=== PATIENT | male | born 1985 | race Caucasian/White ===

== ENCOUNTER 2017-02-24 19:06 | Emergency (ER) | payer MEDICAID ==
[2017-02-24] MEDS ORDERED: 0.9 % SODIUM CHLORIDE 1,000 ML BAG IV ONE ×2 (19:37→20:27)
--- NOTE | 2017-02-24 19:37 | Emergency Department Record ---
History of Present Illness - General Chief Complaint: General Stated Complaint: POSSIBLE OD Time Seen by Provider: 02/24/17 19:19 Source: Patient Mode of Arrival: EMS Limitations: No limitations - History of Present Illness Initial comments: The patient is here due to being found in bed by his mother not responding correctly and possibly having trouble breathing. The patient states he was lying in bed and had what he describes as an "episode" where he gets lightheaded and possibly passes out. He has had many attacks over the last 2 years but has not had it evaluated. He denied any CP, SOB, or MARISCAL prior to the attacks and also denies any drug use. The patient does have a hx of opiod abuse and does use illegal drugs. When EMS responded they found the patient alert and oriented with no REBEKAH, SOB, or confusion. Presently the patient is awake and alert and very pleasant to talk with and denying any problems. The patient also denies any suicidal ideation or intent. Onset/Timin -: Hour(s) - [place] Coma Scale Eye Response: (4) Open spontaneously Motor Response: (6) Obeys commands Verbal Response: (5) Oriented [place] Total: 15 - Related Data Home Medications Medication Instructions Recorded Confirmed Last Taken No Home Med [NO HOME MEDS] 02/24/17 02/24/17 Unknown Allergies Allergy/AdvReac Type Severity Reaction Status Date / Time Penicillins Allergy ANAPHYLAXIS Verified 02/24/17 19:09 Travel Screening - Travel/Exposure Within Last 30 Days Have you traveled within the last 30 days?: No - Travel/Exposure Within Last Year Have you traveled outside the [place] in the last year?: No - Additonal Travel Details Have you been exposed to anyone with a communicable illness?: No - Travel Symptoms Symptom Screening: None Review of Systems Constitutional: Denies: Chills, Fever Eyes: Denies: Eye discharge ENT: Denies: Congestion Respiratory: Denies: Cough, Dyspnea Past Medical History - SOCIAL HISTORY Smoking Status: Current every day smoker Alcohol Use: Occassional Drug Use: Occassional Drug Use Detail:: Marijuana, Opiates, Prescription drug abuse - RESPIRATORY Hx Respiratory Disorders: No - CARDIOVASCULAR Hx Cardio Disorders: No - NEURO Hx Neuro Disorders: Yes Comment:: passing out - GI Hx GI Disorders: No - Hx Genitourinary Disorders: Yes Hx Bladder Problem: Yes (frequency and difficulty going) - ENDOCRINE Hx Endocrine Disorders: No - MUSCULOSKELETAL Hx Musculoskeletal Disorders: No - PSYCH Hx Psych Problems: No - HEMATOLOGY/ONCOLOGY Hx Hematology/Oncology Disorders: No Family Medical History Any Significant Family History?: No Hx Diabetes: Father Physical Exam - General General Appearance: Alert, Oriented x3, Cooperative, No acute distress - Head Head exam: Atraumatic, Normocephalic, Normal inspection - Eye Eye exam: Normal appearance, PERRL - ENT Throat exam: Normal inspection. negative: Tonsillar erythema, Tonsillar exudate - Neck Neck exam: Normal inspection, Full ROM. negative: Tenderness - Respiratory Respiratory exam: Normal lung sounds bilaterally. negative: Respiratory distress - Cardiovascular Cardiovascular Exam: Regular rate, Normal rhythm, Normal heart sounds - GI/Abdominal GI/Abdominal exam: Soft, Normal bowel sounds. negative: Tenderness - Extremities Extremities exam: Normal inspection, Full ROM, Normal capillary refill. negative: Tenderness - Neurological Neurological exam: Alert. negative: Motor sensory deficit - Psychiatric Psychiatric exam: negative: Anxious, Depressed - Skin Skin exam: negative: Cyanosis, Rash Course Vital Signs 02/24/17 19:21 Temperature 98.3 F Pulse Rate [ 116 H Pulse Ox Probe] Respiratory 20 Rate Blood Pressure 116/73 [Left Arm] Pulse Ox 96 - Reevaluation(s) Reevaluation #1: The patient is doing well. He denies any new issues or problems and is resting comfortably. 02/24/17 20:31 Reevaluation #2: The patient is doing well with no complaints or issues. His vitals are normal and he is resting comfortably. 02/24/17 21:29 Reevaluation #3: The patient is doing very well at this time. He is ambulating normally and clear and oriented to all question. He denies any pain or discomfort and I did discuss the urine drug screen with him and the need to not take illegal drugs and also to get into rehab if needed. 02/24/17 22:43 Medical Decision Making - Data Complexity MDM Data: Labs Ordered and/or Reviewed, X-Ray Ordered and/or Reviewed, EKG Ordered and/or Reviewed - Lab Data Result diagrams: 02/24/17 18:55 02/24/17 18:55 - EKG Data -: EKG Interpreted by Me EKG: No Acute Changes, Normal EKG - Radiology Data Radiology results: Report reviewed (CXR: Normal.) Disposition Disposition: Discharge Clinical Impression: Drug use disorder Disposition: Home, Self-Care Condition: (1) Good Instructions: Lightheadedness (ED) Additional Instructions: Please do not take any illegal drugs and please get admitted to a rehab program if needed. Please see your PCP next week for recheck and to have further testing performed if needed to be evaluated for Hepatitis. Return to the ER for any problems or issues. Forms: Patient Portal Access Time of Disposition: 22:46
[2017-02-24 19:42] LABS: BASO % 0.2 % (0-6); EOS % 0.5 % (0-6); GRAN % 56.6 % (47-80); HEMATOCRIT 43.9 % (42.0-52.0); HEMOGLOBIN 14.5 gm/dl (14.0-18.0); LYMPH % 36.5 % (16-45); MEAN CELL VOLUME 88.9 fl (81-97); MEAN CORPUSCULAR HEMOGLOBIN 29.4 pg (27-33); MEAN PLATELET VOLUME 9.5 fl (7.4-10.4); MONO % 6.2 % (0-9); PLATELET COUNT 319 K/uL (130-400); RED BLOOD COUNT 4.94 M/uL (4.40-5.70); RED CELL DISTRIBUTION WIDTH 13.6 % (11.5-14.5); WHITE BLOOD COUNT W/O DIFF 9.3 K/uL (4.2-12.2)
[2017-02-24 19:55] LABS: ALB/GLOB RATIO 1.5 (1.1-1.8); ALBUMIN 4.9 gm/dL (3.5-5.0); ALKALINE PHOSPHATASE 84 U/L (38-126); ALT/SGPT 29 U/L (21-72); AST/SGOT 34 U/L (17-59); BILIRUBIN,TOTAL 0.65 mg/dL (0.2-1.3); BLOOD UREA NITROGEN 19 mg/dL (9-20); CREATINE PHOSPHOKINASE 100 U/L (55-170); EST GLOMERULAR FILTRATION RATE > 60 ml/min; GLUCOSE,RANDOM 196 mg/dL (70-110); TOTAL PROTEIN 8.1 gm/dL (6.3-8.2)
[2017-02-24 19:56] LABS: ACETAMINOPHEN < 10.0 ug/mL (10.0-30.0); SALICYLATE < 1.0 mg/dL (2.8-20.0)
[2017-02-24 19:57] LABS: INR 0.96; PARTIAL THROMBOPLASTIN TIME 24.6 SECONDS (24.5-39.1); PROTHROMBIN TIME (PATIENT) 10.9 SECONDS (9.5-12.1)
[2017-02-24 20:07] LABS: TROPONIN I < 0.012 ng/mL (0.00-0.034)
[2017-02-24 21:44] LABS: AMPHETAMINE SCREEN URINE NOT DETECTED; BARBITURATE SCREEN URINE NOT DETECTED; BENZODIAZEPINE SCREEN URINE NOT DETECTED; COCAINE SCREEN URINE DETECTED; METHADONE SCREEN URINE NOT DETECTED; METHAMPHETAMINE SCREEN NOT DETECTED; OPIATE SCREEN URINE DETECTED; OXYCODONE SCREEN URINE DETECTED; PHENCYCLIDINE SCREEN URINE NOT DETECTED; PROPOXYPHENE SCREEN URINE NOT DETECTED; THC SCREEN URINE DETECTED; TRICYCLIC ANTIDEPRESSANT SCRN NOT DETECTED
[2017-02-24 21:54] LABS: URINE APPEARANCE CLEAR; URINE BILIRUBIN NEGATIVE (NEGATIVE); URINE BLOOD NEGATIVE (NEGATIVE); URINE COLOR YELLOW; URINE GLUCOSE (UA) NEGATIVE (NEGATIVE); URINE KETONE NEGATIVE (NEGATIVE); URINE LEUKOCYTE ESTERASE NEGATIVE (NEGATIVE); URINE NITRITE NEGATIVE (NEGATIVE); URINE UROBILINOGEN 0.2 E.U./dL (0.20 - 1.00)
[2017-02-24 22:10] LABS: URINE AMORPHOUS SEDIMENT 1+; URINE EPITHELIAL CELLS 0 - 2 (FEW); URINE MUCUS LIGHT; URINE WBC 0 - 2 (0-2/hpf)
[2017-02-24 22:35] LABS: CKMB 1.1 ug/L (0-6); TROPONIN I < 0.012 ng/mL (0.00-0.034)
--- NOTE | 2017-02-25 10:02 | RADIOLOGY REPORT ---
EXAM: CHEST 2 VIEWS HISTORY: DIFFICULTY BREATHING. TECHNIQUE: FRONTAL AND LATERAL VIEWS OF THE CHEST WERE PERFORMED. FINDINGS: Heart size is normal. Lung shah are clear. No infiltrate or pleural effusion. The osseous structures are normal. IMPRESSION: NEGATIVE CHEST EXAMINATION. JOB NUMBER: [id number] MTDD
== END 2017-02-24 22:57 | disposition home or self-care (01) ==
LOC: ER 19:06
DX: F19.10 Other psychoactive substance abuse, uncomplicated (principal); R06.00 Dyspnea, unspecified; R42 Dizziness and giddiness
CPT/HCPCS: 99284 ×2; 96360; 96361; 82550; 85025; 85730; 85610; 82553; 84484; 80053; 81001; 80305; 71020; 93005; 93010; G0480 ×3; 80320; 80329; J7030